=== PATIENT | female | born 1950 | race Caucasian/White ===

== ENCOUNTER → 2017-09-09 | Day surgery (SDC) | payer MEDICARE, MEDICAID ==
[~2017-09-09] MED LIST: Cefuroxime 10 MG/ML SYRINGE EYELF SCH; Lidocaine 1% PF 2 ML SDV INJECT SCH; Pilocarpine 4% Ophth Soln 15 ML Bot EYELF SCH
[2017-09-09] MEDS: Polymyxin B/Trimethoprim 10 ML Bottle EYELF SCH ×3 (10:21→12:08)
--- NOTE | 2017-09-09 10:23 | PCM.PREANE ---
Preanesthetic Assessment - Procedure Proposed Procedure: Left Eye Cataract Extraction - Anesthesia/Transfusion/Family Hx Anesthesia History: Prior Anesthesia Reaction Type of Anesthesia Reaction: Excessive Nausea/Vomiting Family History of Anesthesia Reaction: No Transfusion History: No Prior Transfusion(s) - Review of Systems General: No Symptoms Pulmonary: Other (Current smoker last one this morning. ) Cardiovascular: No Symptoms Gastrointestinal: No Symptoms Neurological: Numbness, Pre-Existing Deficit (Back pain, 3 previous surgeries, pain/numbness to left side. ), Tingling, Difficulty Walking (Right knee pain. Limits her ability to get around much. Very painful. Is waiting for surgery in the future. ) Other: Reports: Diabetes, Thyroid Problems, Depression - Physical Assessment NPO Status Date: 09/08/17 NPO Status Time: 20:00 Pulse: 89 O2 Sat by Pulse Oximetry: 97 Respiratory Rate: 16 Blood Pressure: 116/68 Temperature: 37.3 C Weight: 49 kg ASA Class: 2 Mental Status: Alert & Oriented x3 Airway Class: Mallampati = 1 Dentition: Reports: Normal Dentition Thyro-Mental Finger Breadths: 3 Mouth Opening Finger Breadths: 3 ROM/Head Extension: Full Lungs: Clear to Auscultation, Normal Respiratory Effort Cardiovascular: Regular Rate, Regular Rhythm - Allergies Allergies/Adverse Reactions: Allergies Allergy/AdvReac Type Severity Reaction Status Date / Time No Known Allergies Allergy Verified 09/08/17 14:43 - Acknowledgements Anesthesia Type Planned: MAC Pt an Appropriate Candidate for the Planned Anesthesia: Yes Alternatives and Risks of Anesthesia Discussed w Pt/Guardian: Yes Pt/Guardian Understands and Agrees with Anesthesia Plan: Yes PreAnesthesia Questionnaire Musculoskeletal History: Reports: Back Pain, Chronic Other Musculoskeletal History: Right knee pain. Left leg numbness/tingling/ nerve damage Neurological History: Reports: Neuropathy, Diabetic Psychiatric History: Reports: Depression Endocrine/Metabolic History: Reports: Diabetes, Type II, Hypothyroidism - Past Surgical History Neurological Surgical History: Reports: Lumbar Spine (3 surgeries) - SUBSTANCE USE Smoking Status *Q: Current Every Day Smoker Tobacco Use Within Last Twelve Months: Cigarettes - HOME MEDS Home Medications: Home Meds Calcium Carbonate [Calcium] 600 mg PO DAILY 09/08/17 [History] Gabapentin [Neurontin] 1,200 mg PO QID 09/08/17 [History] Levothyroxine [Synthroid] 100 mcg PO DAILY 09/08/17 [History] Magnesium Oxide [Magnesium] 400 mg PO DAILY 09/08/17 [History] Potassium Gluconate [Potassium] 2 tab PO DAILY 09/08/17 [History] Simvastatin 40 mg PO DAILY 09/08/17 [History] metFORMIN [Glucophage XR] 1,000 mg PO BID 09/08/17 [History] oxyCODONE HCl/Acetaminophen [Percocet 10-325 mg Tablet] 1 tab PO Q4H PRN [History] - CURRENT (IN HOUSE) MEDS Current Meds: Current Medications Brimonidine Tartrate (Alphagan 0.2% Ophth Soln) 0 ml EYELF ASDIRECTED VERO Stop: 09/09/17 18:00 Cefuroxime Sodium (Zinacef) 0 mg EYELF ASDIRECTED VERO Stop: 09/09/17 18:00 Lidocaine HCl (Xylocaine-Mpf 1%) 10 ml INJECT ASDIRECTED VERO Stop: 09/09/17 18:00 Phenylephrine HCl (Jayden-Synephrine 2.5% Ophth Soln) 0 ml EYELF ASDIRECTED VERO Stop: 09/09/17 18:00 Pilocarpine HCl (Pilocar 4% Ophth Soln) 0 ml EYELF ASDIRECTED VERO Stop: 09/09/17 18:00 Polymyxin/Trimethoprim Sulfate (Polytrim Ophth Soln) 0 ml EYELF ASDIRECTED VERO Stop: 09/09/17 18:00 Tetracaine HCl (Tetracaine 0.5% Steri-Unit Mariah) 0 ml EYELF ASDIRECTED VERO Stop: 09/09/17 18:00 Tropicamide (Mydriacyl 1% Ophth Soln) 0 ml EYELF ASDIRECTED VERO Stop: 09/09/17 18:00
[2017-09-09] MEDS: Brimonidine 0.2% Ophth Soln 5 ML Bottle EYELF SCH ×3 (10:27→12:08)
[2017-09-09] MEDS: Phenylephrine 2.5% Ophth Soln 2 ML Bot EYELF SCH ×5 (10:32→11:51)
[2017-09-09] MEDS: Tetracaine HCl/PF 0.5% 4 ML Bottle EYELF SCH ×2 (11:42→12:00)
--- NOTE | 2017-09-09 12:08 | PCM48HPAN ---
Post Anesthesia Note - EVALUATION WITHIN 48HRS OF ANESTHETIC Vital Signs in Normal Range: Yes Patient Participated in Evaluation: Yes Respiratory Function Stable: Yes Airway Patent: Yes Cardiovascular Function Stable: Yes Hydration Status Stable: Yes Pain Control Satisfactory: Yes Nausea and Vomiting Control Satisfactory: Yes Mental Status Recovered: Yes Pulse Rate: 89 Resp Rate: 16 Temperature: 37.3 C Blood Pressure: 116/68
== END ==
LOC: JD.SDS 08:44
PROVIDERS: ATTEND Ophthalmology
DX: H25.812 Combined forms of age-related cataract, left eye (principal); Z96.1 Presence of intraocular lens; H16.231 Neurotrophic keratoconjunctivitis, right eye; H16.103 Unspecified superficial keratitis, bilateral; H16.223 Keratoconjunctivitis sicca, not specified as Sjogren's, bilateral; H02.834 Dermatochalasis of left upper eyelid; H02.831 Dermatochalasis of right upper eyelid; H52.31 Anisometropia; F32.9 Major depressive disorder, single episode, unspecified; E03.9 Hypothyroidism, unspecified; E11.40 Type 2 diabetes mellitus with diabetic neuropathy, unspecified; F17.210 Nicotine dependence, cigarettes, uncomplicated; Z90.49 Acquired absence of other specified parts of digestive tract; Z90.710 Acquired absence of both cervix and uterus; Z79.899 Other long term (current) drug therapy; Z79.84 Long term (current) use of oral hypoglycemic drugs
CPT/HCPCS: 66984; J0697; V2632; A9270-GY; J2001